=== PATIENT | male | born 1980 | race Caucasian/White ===

== ENCOUNTER 2023-10-19 12:52 | Emergency (ER) | payer OTHER ==
[2023-10-19 13:10] VITALS: BP 112/87; PULSE 92; RESP 18; TEMP 99; BMI 29.8
== END 2023-10-19 15:17 | disposition home or self-care (01) ==
LOC: FER 12:52
DX: S62.634A Displaced fracture of distal phalanx of right ring finger, initial encounter for closed fracture (principal); V23.49XA Other motorcycle driver injured in collision with car, pick-up truck or van in traffic accident, initial encounter; Y92.410 Unspecified street and highway as the place of occurrence of the external cause
CPT/HCPCS: 73090-TC-LT-FY; 73130-TC-LT-FY; 73130-TC-RT-FY; 99283-25